=== PATIENT | male | born 2000 | race Caucasian/White ===

== ENCOUNTER → 2022-09-30 16:55 | Outpatient (CLI) | payer OTHER, MEDICAID, SELFPAY ==
[2022-09-30 22:22] LABS: Influenza A - CEPHEID Flu A POSITIVE (NEGATIVE); Influenza B - CEPHEID Flu B NEGATIVE (NEGATIVE); Respiratory Syncytial Virus Negative (Negative)
[2022-09-30 22:23] LABS: COVID-19 CEPHEID 4-PLEX PCR Negative (Negative)
== END ==
PROVIDERS: Visit Provider Physician Assistant Medical
DX: R05.1 Acute cough (principal)
CPT/HCPCS: 0241U

== ENCOUNTER 2022-10-03 09:58 | Emergency (ER) | payer OTHER, MEDICAID, SELFPAY ==
[2022-10-03 10:08] VITALS: BP 113/70; PULSE 79; RESP 15; TEMP 36.6; O2SAT 97; BMI 21.7
--- NOTE | 2022-10-03 10:24 | ED.HA ---
HPI - Headache General Chief Complaint: Headache Stated Complaint: Bronchitis/head[place]/ Time Seen by Provider: 10/03/22 10:04 Source: patient Mode of arrival: Ambulatory Limitations: no limitations History of Present Illness HPI Narrative: 21-year-old male who was seen in the walk-in clinic a couple days ago. Was diagnosed with bronchitis. Was given a prescription for antibiotics and also steroids. Had a respiratory test performed however he does not know the results of a. Is here for evaluation of an episode where he got seasick on the local [place]. He did vomit. He had a headache afterwards. That has improved. He was concerned about mold exposure at his residence. Related Data Home Medications Medication Instructions Recorded Confirmed bupropion HCl 300 mg 24 hr tablet, 300 mg PO QAM 09/30/22 09/30/22 extended release (Wellbutrin XL) carbamazepine 400 mg 400 mg PO BID 09/30/22 09/30/22 tablet,extended release,12 hr (Tegretol XR) estradiol 2 mg tablet 2 mg PO DAILY 09/30/22 09/30/22 Previous Rx's Medication Instructions Recorded azithromycin 250 mg tablet See Rx Instructions PO .COMPLEX #6 09/30/22 tabs methylprednisolone 4 mg tablets in 4 mg PO DAILY #21 ea 09/30/22 a dose pack (Medrol (Freddy)) oseltamivir 75 mg capsule (Tamiflu) 75 mg PO BID 5 days #10 caps 10/01/22 Allergies Allergy/AdvReac Type Severity Reaction Status Date / Time Opioids - Morphine Analogues Allergy Verified 10/03/22 10:11 Review of Systems Constitutional Constitutional: Reports system reviewed and no additional complaints, except as documented ENT Ears, Nose, Mouth, and Throat: Reports system reviewed and no additional complaints, except as documented Respiratory Respiratory: Reports system reviewed and no additional complaints, except as documented Integumentary/Breasts Skin/Breast: Reports system reviewed and no additional complaints, except as documented Hematologic/Lymphatic On Anticoagulants: No Patient History Social History Smoking Status: Current every day smoker Smoking Status: Current every day smoker alcohol intake frequency: holidays/special occasions only Substance Use Type: does not use Exam Initial Vital Signs Initial Vital Signs: Vital Signs Temperature 97.9 F 10/03/22 10:08 Pulse Rate 79 10/03/22 10:08 Respiratory Rate 15 10/03/22 10:08 Blood Pressure 113/70 10/03/22 10:08 Pulse Oximetry 97 10/03/22 10:08 Oxygen Delivery Method 10/03/22 10:08 Const General: cooperative, comfortable and No ill appearing HENMT Head: normal to inspection and normocephalic Resp Effort & Inspection: normal respiratory effort Auscultation: clear to auscultation bilaterally Cardio Rate: regular rate Rhythm: regular rhythm Skin General: no rashes or lesions noted Neuro General: patient alert, patient awake and moves all extremities Extrem General: normal to inspection and capillary refill normal Course Vital Signs Vital signs: Vital Signs - 8 hr 10/03/22 10:08 Temperature 97.9 F Pulse Rate 79 Respiratory Rate 15 Blood Pressure 113/70 Pulse Oximetry 97 Oxygen Delivery Method Room Air MDM - Headache MDM Narrative Medical decision making narrative: Review of the patient's medical record shows that he is influenza A positive. This was news to him. Will have him continue his antibiotics since he is already started them. Will also have him continue the steroids. No indication to change in those today. Lungs are clear. No indication for radiologic studies. All of his symptoms can be explained by his influenza diagnosis. He was given return precautions. He expressed understanding and agreement. Discharge Plan Departure Patient Disposition: Home Clinical Impression: Influenza A Instructions: Influenza Activity Restrictions/Additional Instructions: You can take Tylenol/ibuprofen for any fevers or body aches. Be sure to increase your fluid intake. Continue all medications as directed. Return to the emergency department for any new or worsening symptoms. Prescriptions: No Action bupropion HCl [Wellbutrin XL] 300 mg tablet extended release 24 hr 300 mg PO QAM carbamazepine [Tegretol XR] 400 mg tablet extended release 12 hr 400 mg PO BID estradiol 2 mg tablet 2 mg PO DAILY azithromycin 250 mg tablet See Rx Instructions PO .COMPLEX Qty: 6 0RF Rx Instructions: For 250 mg dose pack: take 500 mg today (day 1), then 250 mg for 4 days (days 2-5) PO methylprednisolone [Medrol (Freddy)] 4 mg tablets,dose pack 4 mg PO DAILY Qty: 21 0RF oseltamivir [Tamiflu] 75 mg capsule 75 mg PO BID 5 Days Qty: 10 0RF Referrals: Miscellaneous,Doctor, MD [Primary Care Provider] -
== END 2022-10-03 10:36 | disposition home or self-care (01) ==
PROVIDERS: Emergency Provider Emergency Medicine
DX: J10.1 Influenza due to other identified influenza virus with other respiratory manifestations (principal)
CPT/HCPCS: 99281

== ENCOUNTER → 2022-10-05 17:11 | Outpatient (CLI) | payer OTHER, MEDICAID, SELFPAY ==
--- NOTE | 2022-10-05 17:13 | DI.RAD.S_ITS ---
PROCEDURE: XR CHEST 2V INDICATIONS: persistent cough 1 month TECHNIQUE: 2 views of the chest were acquired. COMPARISON: None. FINDINGS: Surgical changes and devices: None. Lungs and pleura: Lungs are clear. No pleural effusions or pneumothorax. Mediastinum: Mediastinal contours are normal. Heart size is normal. Bones and chest wall: No suspicious bony abnormalities. Soft tissues appear unremarkable. IMPRESSION: No acute process. Dictated by: Dipika Rivera M.D. on 10/05/2022 at 16:21 Approved by: Dipika Rivera M.D. on 10/05/2022 at 16:21
== END ==
PROVIDERS: Referring Provider Student in an Organized Health Care Education/Training Program; Visit Provider Student in an Organized Health Care Education/Training Program
DX: R05.3 Chronic cough (principal)
CPT/HCPCS: 71046

== ENCOUNTER 2022-12-27 17:39 | Emergency (ER) | payer OTHER, MEDICAID, SELFPAY ==
[2022-12-27 17:54] VITALS: BP 139/83; PULSE 68; RESP 18; O2SAT 98; BMI 21.2
--- NOTE | 2022-12-27 18:06 | ED_ITS ---
HPI - Seizure General Chief Complaint: Seizure Stated Complaint: vomiting/seizure Time Seen by Provider: 12/27/22 18:03 Source: patient Mode of arrival: Ambulatory Limitations: no limitations History of Present Illness HPI Narrative: 22-year-old male smoker, THC user with history anxiety presents feeling very shaky, anxious and nauseated. He states that he was in his relative normal state of health earlier today and then took an energy drink that was a very high concentration formula. He realized after the fact he started feeling poorly and when he looked at the regular dosing he took double what he had intended. He began feeling panicky and shaky and had what he describes as a very brief anxious or panic attack-like seizure that lasted about 5 seconds, he was fully aware of this when it happened. He denies any headache or blurred vision. He has no chest pain or shortness of breath. Related Data Home Medications Medication Instructions Recorded Confirmed bupropion HCl 300 mg 24 hr tablet, 300 mg PO QAM 09/30/22 12/27/22 extended release (Wellbutrin XL) carbamazepine 400 mg 400 mg PO BID 09/30/22 12/27/22 tablet,extended release,12 hr (Tegretol XR) estradiol 2 mg tablet 2 mg PO BID 09/30/22 12/27/22 atomoxetine 40 mg capsule 40 mg PO DAILY 10/05/22 12/27/22 (Strattera) prazosin 2 mg capsule 2 mg PO BEDTIME 10/05/22 12/27/22 hydroxyzine HCl 50 mg tablet 50 mg PO DAILY PRN Anxiety 12/27/22 12/27/22 spironolactone 50 mg tablet 50 mg PO BID 12/27/22 12/27/22 (Aldactone) Previous Rx's Medication Instructions Recorded azithromycin 250 mg tablet See Rx Instructions PO .COMPLEX #6 09/30/22 tabs methylprednisolone 4 mg tablets in 4 mg PO DAILY #21 ea 09/30/22 a dose pack (Medrol (Freddy)) Allergies Allergy/AdvReac Type Severity Reaction Status Date / Time Opioids - Morphine Analogues Allergy Nausea Verified 12/27/22 17:54 Review of Systems Review of Systems Narrative: GENERAL: See HPI HEENT: Denies sinus pain, ear pain, sore throat, difficulty swallowing, dizziness. RESPIRATORY: See HPI CARDIOVASCULAR: See HPI GASTROINTESTINAL: See HPI : Denies dysuria, frequency, incontinence, hematuria, urinary retention. MUSCULOSKELETAL: denies weakness, joint pain, or bony pain SKIN: Denies rash, skin lesions, or other NEUROLOGIC: Denies weakness, headache, numbness, change in speech, confusion, seizures, incoordination. PSYCHIATRIC: No concerning psychosocial issues. 12 point review of systems is negative except for those stated above Patient History Social History Smoking Status: Current every day smoker Smoking Status: Current every day smoker tobacco type: cigarettes and vaping alcohol intake frequency: holidays/special occasions only Substance Use Type: marijuana Exam Narrative Exam Narrative: GENERAL: [22] year old patient appears stated age. Well-developed patient, in mild distress. Slightly anxious, holding an emesis bag HEAD: Atraumatic. Normocephalic. EYES: Pupils equal round and reactive. Extraocular motions intact. No scleral icterus. No injection or drainage. ENT: Moist mucous membranes Nose without bleeding, purulent drainage. Throat w ithout erythema, tonsillar hypertrophy or exudate. Airway patent. NECK: Trachea midline. Non tender CARDIOVASCULAR: Tachycardic but regular rhythm without murmurs, gallops, or rubs. RESPIRATORY: Clear to auscultation. Breath sounds equal bilaterally. No wheezes, rales, or rhonchi. GASTROINTESTINAL: Abdomen soft, non-tender, nondistended. EXTREMITIES: No edema or joint tenderness. BACK: Nontender without deformity or crepitance. No flank tenderness. NEURO: AOx3. SKIN: No rash or erythema of visible areas Initial Vital Signs Initial Vital Signs: Vital Signs Pulse Rate 68 12/27/22 17:54 Respiratory Rate 18 12/27/22 17:54 Blood Pressure 139/83 12/27/22 17:54 Pulse Oximetry 98 12/27/22 17:54 Oxygen Delivery Method Room Air 12/27/22 17:54 Course Orders Ordered: ED Orders 12/27/22 18:15 UA Complete [Urinalysis and Microscopic] Stat Urine Drug Screen, Rapid Stat 12/27/22 19:15 BMP [Basic Metabolic Panel] Stat CBC Auto Diff [Complete Blood Count AUTO DIFF] Stat Discontinued Medications Sodium Chloride (Normal Saline 0.9%) 1,000 mls @ 1,000 mls/hr IV BOLUS ONE Stop: 12/27/22 20:09 Last Infusion: 12/27/22 20:23 Dose: 0 mls/hr Documented By: Admin: 12/27/22 19:17 Dose: 1,000 mls/hr Documented By: JOHNATHON Lorazepam (Lorazepam 2 Mg/Ml Inj) 0.5 mg IV NOW ONE Stop: 12/27/22 19:12 Last Admin: 12/27/22 19:17 Dose: 0.5 mg Documented By: JOHNATHON Ondansetron HCl (Ondansetron 4 Mg Odt) 4 mg SL NOW PRN PRN Reason: Nausea And Vomiting Last Admin: 12/27/22 18:31 Dose: 4 mg Documented By: CLAUDE Ondansetron HCl (Ondansetron 4 Mg Odt Prepack) 1 bottle MISC SEEINSTR ONE Stop: 12/27/22 20:09 Last Admin: 12/27/22 20:23 Dose: 1 bottle Documented By: MAZIN Pantoprazole Sodium (Pantoprazole 40 Mg Vial) 40 mg IV NOW ONE Stop: 12/27/22 19:11 Last Admin: 12/27/22 19:17 Dose: 40 mg Documented By: JOHNATHON Reevaluation(s) Reevaluation #1: Patient is still vomiting 30 minutes after ondansetron ODT Time: 19:13 Reevaluation #2: Significant improvement after IV fluids, patient feeling tremendously better, heart rate improved, no longer nauseous Vital Signs Vital signs: Vital Signs - 8 hr 12/27/22 17:54 12/27/22 18:40 12/27/22 18:41 Temperature Pulse Rate 68 95 H Respiratory Rate 18 Blood Pressure 139/83 122/67 Pulse Oximetry 98 100 Oxygen Delivery Method Room Air 12/27/22 18:41 12/27/22 20:26 Temperature 97.4 F L Pulse Rate 95 H 86 Respiratory Rate 16 Blood Pressure 115/66 Pulse Oximetry 99 100 Oxygen Delivery Method Room Air MDM - Seizure Lab Data 12/27/22 19:15 12/27/22 19:15 Labs: Lab Results 12/27/22 12/27/22 12/27/22 Range/Units 18:15 18:15 19:15 WBC 9.9 (4.5-11.0) X10^3/uL RBC 4.56 (4.5-5.9) X10^6/uL Hgb 13.9 (13.5-17.5) g/dL Hct 40.5 L (41-53) % MCV 88.8 (80-100) fL MCH 30.4 (26-34) PG MCHC 34.2 (30-36) % RDW 12.7 (11.6-14.8) % Plt Count 219 (150-400) X10^3/uL Neut % (Auto) 77.8 H (50-75) % Lymph % (Auto) 14.4 L (25-40) % [place] % (Auto) 6.6 (3-14) % Eos % (Auto) 0.4 L (2-4) % Baso % (Auto) 0.8 (0-2) % Neut # (Auto) 7700 H (3514-6075) /uL Lymph # (Auto) 1400 (8952-3676) /uL [place] # (Auto) 700 (0-900) /uL Eos # (Auto) 0 (0-450) /uL Baso # (Auto) 100 (0-100) /uL Sodium (137-145) mmol/L Potassium (3.4-5.1) mmol/L Chloride (98-107) mmol/L Carbon Dioxide (22-32) mmol/L BUN (9-20) mg/dL Creatinine (0.66-1.25) mg/dL Estimated GFR (>60) mL/min BUN/Creatinine Ratio (6-22) Glucose (70-100) mg/dL Calcium (8.4-10.2) mg/dL Urine Color Yellow Urine Appearance Clear Urine pH 6.5 (4.5-8.0) Ur Specific [place] 1.010 (1.000-1.035) Urine Protein Negative (Negative) Urine Glucose (UA) Negative (Negative) g/dL Urine Ketones Negative (NEGATIVE) Urine Occult Blood Negative (Negative) Urine Nitrate Negative (Negative) Urine Bilirubin Negative (NEGATIVE) Urine Urobilinogen 0.2 (0.2) E.U./dL Ur Leukocyte Esterase Negative (NEGATIVE) Urine RBC 0-1/hpf (0-5/HPF) Urine WBC 0-1/hpf (0-5/HPF) Ur Squamous Epith Cells 0-1 /hpf (0-5/HPF) Urine Bacteria None seen (None) Ur Culture Indicated? Cult not indicated U Opiates 300ng/mL cut Negative (Negative) Ur Oxycodone Screen Negative (Negative) Urine Methadone Screen Negative (Negative) Ur Barbiturates Screen Negative (Negative) U Tricyclic Antidepress Negative (Negative) Ur Phencyclidine Scrn Negative (Negative) Ur Amphetamines Screen Negative (Negative) U Methamphetamines Scrn Negative (Negative) Ur MDMA Scrn (Ecstasy) Negative (Negative) U Benzodiazepines Scrn Negative (Negative) Urine Cocaine Screen Negative (Negative) U Marijuana (THC) Screen Positive H (Negative) 12/27/22 Range/Units 19:15 WBC (4.5-11.0) X10^3/uL RBC (4.5-5.9) X10^6/uL Hgb (13.5-17.5) g/dL Hct (41-53) % MCV (80-100) fL MCH (26-34) PG MCHC (30-36) % RDW (11.6-14.8) % Plt Count (150-400) X10^3/uL Neut % (Auto) (50-75) % Lymph % (Auto) (25-40) % [place] % (Auto) (3-14) % Eos % (Auto) (2-4) % Baso % (Auto) (0-2) % Neut # (Auto) (9648-6229) /uL Lymph # (Auto) (9212-0009) /uL [place] # (Auto) (0-900) /uL Eos # (Auto) (0-450) /uL Baso # (Auto) (0-100) /uL Sodium 138 (137-145) mmol/L Potassium 3.4 (3.4-5.1) mmol/L Chloride 101 (98-107) mmol/L Carbon Dioxide 26 (22-32) mmol/L BUN 7 L (9-20) mg/dL Creatinine 0.68 (0.66-1.25) mg/dL Estimated GFR > 60 (>60) mL/min BUN/Creatinine Ratio 10.3 (6-22) Glucose 106 H (70-100) mg/dL Calcium 9.3 (8.4-10.2) mg/dL Urine Color Urine Appearance Urine pH (4.5-8.0) Ur Specific [place] (1.000-1.035) Urine Protein (Negative) Urine Glucose (UA) (Negative) g/dL Urine Ketones (NEGATIVE) Urine Occult Blood (Negative) Urine Nitrate (Negative) Urine Bilirubin (NEGATIVE) Urine Urobilinogen (0.2) E.U./dL Ur Leukocyte Esterase (NEGATIVE) Urine RBC (0-5/HPF) Urine WBC (0-5/HPF) Ur Squamous Epith Cells (0-5/HPF) Urine Bacteria (None) Ur Culture Indicated? U Opiates 300ng/mL cut (Negative) Ur Oxycodone Screen (Negative) Urine Methadone Screen (Negative) Ur Barbiturates Screen (Negative) U Tricyclic Antidepress (Negative) Ur Phencyclidine Scrn (Negative) Ur Amphetamines Screen (Negative) U Methamphetamines Scrn (Negative) Ur MDMA Scrn (Ecstasy) (Negative) U Benzodiazepines Scrn (Negative) Urine Cocaine Screen (Negative) U Marijuana (THC) Screen (Negative) MDM Narrative Medical decision making narrative: [22] year old patient presents with nausea, vomiting, anxiety and panic Multiple etiologies for patient's symptoms considered including, but not limited to: [Toxic ingestion, anxiety, electrolyte abnormality, versus other] Prior Charts reviewed in our EMR Primary Historian: patient Labs reviewed and interpreted by myself: Urine without signs of infection, dehydration or tox other than THC Patient's symptoms improved over duration of stay with above-stated therapies. It seems likely that patient is perhaps relatively sensitive to caffeine and took a rather large dose which made him feel anxious. He was bit nauseated and felt significant improvement after our therapies. Labs are reassuring as is response to therapies. Patient appropriate for discharge. He is tolerating orals Findings and discharge diagnosis discussed with patient/family followed by verbalization of understanding Return precautions discussed with patient/family whom verbalize understanding of diagnosis and plan Discharge Plan Departure Patient Disposition: Home Clinical Impression: Vomiting, Medication reaction Instructions: DI for Vomiting -- Adult Activity Restrictions/Additional Instructions: *You have been diagnosed with [adverse reaction to huck-hyk-miwuajp substance, vomiting. Thankfully as we discussed your history and physical exam, labs and response to therapies is reassuring and there is no indication for further workup at this time] *What to do: *Please continue to take your regular medications as directed. [ ] New medication prescriptions sent to your pharmacy: [ ] [ ] New medication written as a paper prescription [ ] No new medications given *Please follow up with your primary care provider in 2-3 days, call for an aditi ointment. Let them know you were seen in the Emergency Department and that we ask that you be seen in follow up. We will electronically transmit a record of today's note if your PCP is in our system *If you do not have a primary care provider please contact the [facility] Resource line at [phone]. They will ask some questions about your medical history and help get you set up with a doctor in the community. *Return to Emergency Department if you should have any new, worsening or con cerning symptoms, such as [fever greater than 101 F, shaking chills, worsening pain, persistent vomiting or other bothersome symptoms] Prescriptions: No Action bupropion HCl [Wellbutrin XL] 300 mg tablet extended release 24 hr 300 mg PO QAM carbamazepine [Tegretol XR] 400 mg tablet extended release 12 hr 400 mg PO BID estradiol 2 mg tablet 2 mg PO BID azithromycin 250 mg tablet See Rx Instructions PO .COMPLEX Qty: 6 0RF Rx Instructions: For 250 mg dose pack: take 500 mg today (day 1), then 250 mg for 4 days (days 2-5) PO methylprednisolone [Medrol (Freddy)] 4 mg tablets,dose pack 4 mg PO DAILY Qty: 21 0RF atomoxetine [Strattera] 40 mg capsule 40 mg PO DAILY prazosin 2 mg capsule 2 mg PO BEDTIME hydroxyzine HCl 50 mg Tablet 50 mg PO DAILY PRN (Reason: Anxiety) spironolactone [Aldactone] 50 mg Tablet 50 mg PO BID Referrals: Miscellaneous,Doctor, MD [Primary Care Provider] - Stand Alone Forms: Patient Portal/API
[2022-12-27] MEDS: ONDANSETRON 4 MG ODT SL (18:31)
[2022-12-27 18:38] LABS: Appearance Urine UA CLEAR; Bilirubin Urine UA NEGATIVE (NEGATIVE); Color Urine UA YELLOW; Glucose Urine UA NEGATIVE (Negative); Ketones Urine UA NEGATIVE (NEGATIVE); Leukocyte Esterase Urine UA NEGATIVE (NEGATIVE); Nitrite Urine UA NEGATIVE (Negative); Occult Blood Urine UA NEGATIVE (Negative); Protein Urine UA NEGATIVE (Negative); Urobilinogen Urine UA 0.2 E.U./dL (0.2); pH Urine UA 6.5 (4.5-8.0)
[2022-12-27 18:39] LABS: UR Morphine/Opiate cutoff 300 Negative (Negative); Ur Creatinine Normal (Normal); Ur Specific Gravity Normal (Normal); Urine Amphetamines Negative (Negative); Urine Barbiturates Negative (Negative); Urine Benzodiazepines Negative (Negative); Urine Cocaine Negative (Negative); Urine MDMA Negative (Negative); Urine Methadone Negative (Negative); Urine Methamphetamines Negative (Negative); Urine Oxycodone Negative (Negative); Urine Phencyclidine Negative (Negative); Urine Tetrahydrocannabinol Positive (Negative); Urine Tricyclic Antidepressant Negative (Negative); Urine pH Normal (Normal)
[2022-12-27 18:40] VITALS: PULSE 95; O2SAT 100
[2022-12-27 18:41] VITALS: BP 122/67; PULSE 95; O2SAT 99
[2022-12-27 18:58] LABS: Bacteria Urine None Seen; Culture Indicated Urine Cult Not Indicated; RBC Urine 0-1/HPF (0-5/HPF); Squamous Epithelial Cell Urine 0-1 /HPF (0-5/HPF); WBC Urine 0-1/HPF (0-5/HPF)
[2022-12-27] MEDS: PANTOPRAZOLE 40 MG VIAL IV (19:17)
[2022-12-27] MEDS: SODIUM CHLORIDE 0.9% 1,000 ML 1000 ML IV (19:17)
[2022-12-27] MEDS: LORazepam 2 MG/ML INJ 0.5 MG IV (19:17)
[2022-12-27 19:29] LABS: Add Manual Diff / Slide Review NO; Basophils Absolute Auto 100 /uL (0-100); Basophils Percent Auto 0.8 % (0-2); Eosinophils Absolute Auto 0 /uL (0-450); Eosinophils Percent Auto 0.4 % (2-4); Hematocrit 40.5 % (41-53); Hemoglobin 13.9 g/dL (13.5-17.5); Lymphocytes Absolute Auto 1400 /uL (1100-4500); Lymphocytes Percent Auto 14.4 % (25-40); Mean Corpuscular HGB Conc 34.2 % (30-36); Mean Corpuscular Hemoglobin 30.4 PG (26-34); Mean Corpuscular Volume 88.8 fL (80-100); Monocytes Absolute Auto 700 /uL (0-900); Monocytes Percent Auto 6.6 % (3-14); Neutrophils Absolute Auto 7700 /uL (1500-7000); Neutrophils Percent Auto 77.8 % (50-75); Platelet Count 219 X10^3/uL (150-400); Red Blood Cell Count 4.56 X10^6/uL (4.5-5.9); Red Cell Distribution Width 12.7 % (11.6-14.8); White Blood Cell Count 9.9 X10^3/uL (4.5-11.0)
[2022-12-27 19:43] LABS: BUN Creatinine Ratio 10.3 (6-22); Blood Urea Nitrogen 7 mg/dL (9-20); Calcium 9.3 mg/dL (8.4-10.2); Carbon Dioxide 26 mmol/L (22-32); Chloride 101 mmol/L (98-107); Estimated Glomerular Filt Rate > 60 mL/min (>60); Glucose 106 mg/dL (70-100); HEMOLYSIS < 15 (0-50); Potassium 3.4 mmol/L (3.4-5.1); Sodium 138 mmol/L (137-145)
[2022-12-27] MEDS: ONDANSETRON 4 MG ODT PREPACK 1 BOTTLE MISC (20:23)
[2022-12-27 20:26] VITALS: BP 115/66; PULSE 86; RESP 16; TEMP 36.3; O2SAT 100
== END 2022-12-27 20:25 | disposition home or self-care (01) ==
PROVIDERS: Emergency Provider Emergency Medicine
DX: R11.10 Vomiting, unspecified (principal); T50.905A Adverse effect of unspecified drugs, medicaments and biological substances, initial encounter
CPT/HCPCS: 80048; 80305; 81001; 85025; 96361; 96374; 96375; 99284; C9113; J2060

== ENCOUNTER 2023-03-04 08:01 | Emergency (ER) | payer OTHER, MEDICAID, SELFPAY ==
[2023-03-04 08:08] VITALS: BP 141/61; PULSE 92; RESP 18; TEMP 36.8; O2SAT 97; BMI 21.2
--- NOTE | 2023-03-04 08:28 | DI.RAD.S_ITS ---
PROCEDURE: XR CHEST 1V INDICATIONS: cough TECHNIQUE: One view of the chest was acquired. COMPARISON: [facility], CR, XR CHEST 2V, 10/05/2022, 17:12. FINDINGS: Surgical changes and devices: None. Lungs and pleura: Hazy left mid lung zone airspace opacity. Mediastinum: Mediastinal contours appear normal. Heart size is normal. Bones and chest wall: No suspicious bony lesions. Overlying soft tissues appear unremarkable. IMPRESSION: Hazy left mid lung zone airspace opacity, either atelectasis or developing pneumonia. Dictated by: Guillermo Juarez M.D. on 03/04/2023 at 9:13 Approved by: Guillermo Juarez M.D. on 03/04/2023 at 9:14
--- NOTE | 2023-03-04 08:29 | ED_ITS ---
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 Complains 1 week postnasal drip congestion productive cough. Had some blood-tinged sputum this morning. Awake each morning with coughing that clears however this morning had more productive cough. No dyspnea. No chest pain. Patient states sick contacts include roommates as well as patient went to a libertarian and was informed was exposed to influenza. Patient has inhaler home with past use for possible asthma. Patient in no distress. Related Data Home Medications Medication Instructions Recorded Confirmed bupropion HCl 300 mg 24 hr tablet, 300 mg PO QAM 09/30/22 12/27/22 extended release (Wellbutrin XL) carbamazepine 400 mg 400 mg PO BID 09/30/22 12/27/22 tablet,extended release,12 hr (Tegretol XR) estradiol 2 mg tablet 2 mg PO BID 09/30/22 12/27/22 atomoxetine 40 mg capsule 40 mg PO DAILY 10/05/22 12/27/22 (Strattera) prazosin 2 mg capsule 2 mg PO BEDTIME 10/05/22 12/27/22 hydroxyzine HCl 50 mg tablet 50 mg PO DAILY PRN Anxiety 12/27/22 12/27/22 spironolactone 50 mg tablet 50 mg PO BID 12/27/22 12/27/22 (Aldactone) Previous Rx's Medication Instructions Recorded azithromycin 250 mg tablet See Rx Instructions PO .COMPLEX #6 09/30/22 tabs methylprednisolone 4 mg tablets in 4 mg PO DAILY #21 ea 09/30/22 a dose pack (Medrol (Freddy)) Allergies Allergy/AdvReac Type Severity Reaction Status Date / Time Opioids - Morphine Analogues Allergy Nausea Verified 12/27/22 17:54 Review of Systems Review of Systems Narrative: GENERAL: negative chills, fatigue, malaise, fever, sweats. HEENT: negative sinus pain, ear pain, sore throat, positive postnasal drip RESPIRATORY: negative dyspnea, positive cough CARDIOVASCULAR: negative chest pain, palpitations GASTROINTESTINAL: negative nausea, vomiting, abdominal pain : negative dysuria, frequency, hematuria MUSCULOSKELETAL: negative muscle or bony pain SKIN: negative rash, skin lesions NEUROLOGIC: negative weakness, numbness ROS Unobtainable: All systems reviewed & are unremarkable except as noted in HPI and below Patient History Social History Smoking Status: Current every day smoker Smoking Status: Current every day smoker tobacco type: cigarettes and vaping alcohol intake frequency: holidays/special occasions only Substance Use Type: marijuana Exam Narrative Exam Narrative: GENERAL: in no distress, not toxic not dyspneic HEAD: Normocephalic. EYES: Pupils equal round ENT: Mucous membranes moist. No pharyngeal erythema edema exudates. No tongue elevation. No uvular shift. NECK: Trachea midline. CARDIOVASCULAR: Regular rate and rhythm without murmurs RESPIRATORY: Clear to auscultation. Breath sounds equal bilaterally. No wheezes, rales, or rhonchi. Speaking full sentences. No respiratory distress. BACK: No flank tenderness. NEURO: AOx4. SKIN: Warm and dry PSYCH: Not anxious, is cooperative Initial Vital Signs Initial Vital Signs: Vital Signs Temperature 98.2 F 03/04/23 08:08 Pulse Rate 92 H 03/04/23 08:08 Respiratory Rate 18 03/04/23 08:08 Blood Pressure 141/61 H 03/04/23 08:08 Pulse Oximetry 97 03/04/23 08:08 Oxygen Delivery Method Room Air 03/04/23 08:08 Course Orders Ordered: ED Orders 03/04/23 08:28 XR chest 1V Stat 03/04/23 08:35 Respiratory Panel (Film Array) Stat Vital Signs Vital signs: Vital Signs - 8 hr 03/04/23 08:08 Temperature 98.2 F Pulse Rate 92 H Respiratory Rate 18 Blood Pressure 141/61 H Pulse Oximetry 97 Oxygen Delivery Method Room Air MDM - URI/Sore Throat Lab Data Labs: Lab Results 03/04/23 Range/Units 08:35 Chlamy pneumoniae PCR Not detected (Not Detect) Adenovirus (PCR) Not detected (Not Detect) B. pertussis DNA (PCR) Not detected (Not Detecte) B.parapertussis DNA PCR Not detected (Not Detecte) Coronavirus OC43 (PCR) Not detected (Not Detect) Coronavirus HKU1 (PCR) Not detected (Not Detect) Coronavirus 229E (PCR) Not detected (Not Detect) SARS-CoV-2 (PCR) Not detected (Not Detecte) Coronavirus NL63 (PCR) Not detected (Not Detect) Human Metapneumovir PCR Detected H (Not Detect) Influenza Type A (PCR) Not detected (Not Detect) Influenza Type B (PCR) Not detected (Not Detect) M. pneumoniae (PCR) Not detected (Not Detect) Parainfluenza 1 (PCR) Not detected (Not Detect) Parainfluenza 2 (PCR) Not detected (Not Detect) Parainfluenza 3 (PCR) Not detected (Not Detect) Parainfluenza 4 (PCR) Not detected (Not Detect) RSV (PCR) Not detected (Not Detect) Entero/Rhino (PCR) Not detected (Not Detect) Imaging Data Chest x-ray: Radiologist's Impression: IMPRESSION:? Hazy left mid lung zone airspace opacity, either atelectasis or developing pneumonia. 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 Complains 1 week postnasal drip congestion productive cough. Had some blood-tinged sputum this morning. Awake each morning with coughing that clears however this morning had more productive cough. No dyspnea. No chest pain. Patient states sick contacts include roommates as well as patient went to a libertarian and was informed was exposed to influenza. Patient has inhaler home with past use for possible asthma. Patient in no distress. 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 Pertinent findings: Viral swab positive human metapneumovirus Imaging studies independently reviewed: Chest x-ray left lower lobe atelectasis versus pneumonia Treatments: None required Re-evaluations: Reviewed results with patient and partner. At this time no antibiotics indicated for viral infection. Patient does understand. Patient does see primary care at [facility]. Patient does have inhaler at home to use as needed for cough or shortness of breath. Return precautions reviewed with patient and partner. They desire discharge home. Discussion: Appropriate for discharge home. No antibiotics indicated. No hypoxia no tachypnea no tachycardia. No breathing treatments indicated. No prescriptions indicated. Patient does have primary care to follow up with. Not toxic at discharge. Patient desires discharge home. Diagnosis: Viral bronchitis Discharge Plan Departure Patient Disposition: Home Clinical Impression: Infection due to human metapneumovirus (hMPV) Instructions: DI for Acute Bronchitis, DI for Viral Upper Respiratory Infection -- Adult Activity Restrictions/Additional Instructions: Please see your family doctor in a week for re-evaluation. The viral swab shows you have tested positive for the human metapneumovirus, no antibiotics indicated at this time. Antibiotics do not work on viruses. Please do use your inhaler at home 2 puffs every 4 hours as needed for cough or short of breath. Return immediately if worse if any questions or concerns. Work note has been provided for you. Return if worse if any questions or concerns Prescriptions: No Action bupropion HCl [Wellbutrin XL] 300 mg tablet extended release 24 hr 300 mg PO QAM carbamazepine [Tegretol XR] 400 mg tablet extended release 12 hr 400 mg PO BID estradiol 2 mg tablet 2 mg PO BID azithromycin 250 mg tablet See Rx Instructions PO .COMPLEX Qty: 6 0RF Rx Instructions: For 250 mg dose pack: take 500 mg today (day 1), then 250 mg for 4 days (days 2-5) PO methylprednisolone [Medrol (Freddy)] 4 mg tablets,dose pack 4 mg PO DAILY Qty: 21 0RF atomoxetine [Strattera] 40 mg capsule 40 mg PO DAILY prazosin 2 mg capsule 2 mg PO BEDTIME hydroxyzine HCl 50 mg Tablet 50 mg PO DAILY PRN (Reason: Anxiety) spironolactone [Aldactone] 50 mg Tablet 50 mg PO BID Referrals: Miscellaneous,Doctor, [Non-Staff] - Stand Alone Forms: Patient Portal/API, Work Release Note
[2023-03-04 09:39] LABS: Adenovirus Not Detected (Not Detect); B. parapertussis Not Detected (Not Detecte); Bordetella pertussis Not Detected (Not Detecte); Chlamydophila pneumoniae Not Detected (Not Detect); Coronavirus 229E Not Detected (Not Detect); Coronavirus HKU1 Not Detected (Not Detect); Coronavirus NL 63 Not Detected (Not Detect); Coronavirus OC43 Not Detected (Not Detect); Human Metapneumovirus Detected (Not Detect); Human Rhinovirus/Enterovirus Not Detected (Not Detect); Influenza A Not Detected (Not Detect); Influenza B Not Detected (Not Detect); Mycoplasma pneumoniae Not Detected (Not Detect); Parainfluenza Virus 1 Not Detected (Not Detect); Parainfluenza Virus 2 Not Detected (Not Detect); Parainfluenza Virus 3 Not Detected (Not Detect); Parainfluenza Virus 4 Not Detected (Not Detect); Respiratory Syncytial Virus Not Detected (Not Detect); SARS- CoV-2 Not Detected (Not Detecte)
[2023-03-04 10:11] VITALS: BP 123/62; PULSE 82; RESP 18; O2SAT 97
== END 2023-03-04 10:11 | disposition home or self-care (01) ==
PROVIDERS: Emergency Provider Emergency Medicine
DX: J06.9 Acute upper respiratory infection, unspecified (principal); B97.81 Human metapneumovirus as the cause of diseases classified elsewhere; F17.200 Nicotine dependence, unspecified, uncomplicated
CPT/HCPCS: 71045; 87633; 99283

== ENCOUNTER → 2023-08-17 14:27 | Outpatient (CLI) | payer OTHER, SELFPAY ==
[2023-08-17 15:22] LABS: Influenza A - CEPHEID Flu A NEGATIVE (NEGATIVE); Influenza B - CEPHEID Flu B NEGATIVE (NEGATIVE); Respiratory Syncytial Virus Negative (Negative)
[2023-08-17 15:23] LABS: COVID-19 CEPHEID 4-PLEX PCR Negative (Negative)
== END ==
PROVIDERS: Visit Provider Physician Assistant
DX: R11.0 Nausea (principal)
CPT/HCPCS: 0241U

== ENCOUNTER 2023-08-30 03:05 | Emergency (ER) | payer SELFPAY ==
[2023-08-30 03:10] VITALS: BP 113/62; PULSE 81; RESP 20; TEMP 36.7; O2SAT 96; BMI 21.2
--- NOTE | 2023-08-30 03:11 | ED_ITS ---
HPI - General Adult General Chief complaint: Head Injury Stated complaint: gashed head on cabinet Time Seen by Provider: 08/30/23 03:08 Source: patient Mode of arrival: Ambulatory Limitations: no limitations History of Present Illness HPI narrative: Patient is here for evaluation of a head injury. Patient states that she hit her head on the corner of a cabinet. There was no loss of consciousness but did have a headache afterwards. This has improved somewhat. Has had some nausea as well but this has improved. Did have some bleeding from her head. Not on blood thinners. No other injuries from the event. Related Data Home Medications Medication Instructions Recorded Confirmed bupropion HCl 300 mg 24 hr tablet, 300 mg PO QAM 09/30/22 08/17/23 extended release (Wellbutrin XL) carbamazepine 400 mg 400 mg PO BID 09/30/22 08/17/23 tablet,extended release,12 hr (Tegretol XR) estradiol 2 mg tablet 2 mg PO BID 09/30/22 08/17/23 prazosin 2 mg capsule 2 mg PO BEDTIME 10/05/22 08/17/23 hydroxyzine HCl 50 mg tablet 50 mg PO DAILY PRN Anxiety 12/27/22 08/17/23 spironolactone 50 mg tablet 50 mg PO BID 12/27/22 08/17/23 (Aldactone) Allergies Allergy/AdvReac Type Severity Reaction Status Date / Time Opioids - Morphine Analogues Allergy Nausea Verified 08/17/23 13:53 Review of Systems Constitutional Constitutional: Reports system reviewed and no additional complaints, except as documented ENT Ears, Nose, Mouth, and Throat: Reports system reviewed and no additional complaints, except as documented Respiratory Respiratory: Reports system reviewed and no additional complaints, except as documented Integumentary/Breasts Skin/Breast: Reports system reviewed and no additional complaints, except as documented Neurologic Neurologic: Reports system reviewed and no additional complaints, except as doc umented Hematologic/Lymphatic On Anticoagulants: No Patient History Social History Smoking Status: Current every day smoker Smoking Status: Current every day smoker tobacco type: cigarettes and vaping alcohol intake frequency: holidays/special occasions only Substance Use Type: marijuana Exam Initial Vital Signs Initial Vital Signs: Vital Signs Temperature 98.1 F 08/30/23 03:10 Pulse Rate 81 08/30/23 03:10 Respiratory Rate 20 08/30/23 03:10 Blood Pressure 113/62 08/30/23 03:10 Pulse Oximetry 96 08/30/23 03:10 Oxygen Delivery Method Room Air 08/30/23 03:10 HENMT Head: No hematoma, laceration (3 cm superficial) and No palpable skull fracture Resp Effort & Inspection: normal respiratory effort Cardio Rate: regular rate Skin Other: 3 cm superficial laceration to scalp. Neuro General: patient alert, patient awake and moves all extremities Course Vital Signs Vital signs: Vital Signs - 8 hr 08/30/23 03:10 Temperature 98.1 F Pulse Rate 81 Respiratory Rate 20 Blood Pressure 113/62 Pulse Oximetry 96 Oxygen Delivery Method Room Air Medical Decision Making MDM Narrative Medical decision making narrative: Superficial laceration to scalp. No active bleeding. No need for fixation here in the ER. We did discuss concussions. No indication for head CT. Low suspicion for skull fracture or intracranial hemorrhage. We discussed activities to avoid. Discussed return precautions. Patient expressed understanding and agreement plan. Discharge Plan Departure Patient Disposition: Home Clinical Impression: Concussion, Abrasion of scalp Instructions: Concussion Activity Restrictions/Additional Instructions: Continue to take all of your medications as directed. You can take Tylenol as needed for headaches. You do need to avoid activities where you can hit your head again. Contact your primary doctor for follow-up. Prescriptions: No Action bupropion HCl [Wellbutrin XL] 300 mg tablet extended release 24 hr 300 mg PO QAM carbamazepine [Tegretol XR] 400 mg tablet extended release 12 hr 400 mg PO BID estradiol 2 mg tablet 2 mg PO BID prazosin 2 mg capsule 2 mg PO BEDTIME hydroxyzine HCl 50 mg Tablet 50 mg PO DAILY PRN (Reason: Anxiety) spironolactone [Aldactone] 50 mg Tablet 50 mg PO BID Referrals: Miscellaneous,Doctor, MD [Primary Care Provider] - Stand Alone Forms: Patient Portal/API
== END 2023-08-30 03:48 | disposition home or self-care (01) ==
PROVIDERS: Emergency Provider Emergency Medicine
DX: S06.0X0A Concussion without loss of consciousness, initial encounter (principal); S00.01XA Abrasion of scalp, initial encounter; W22.8XXA Striking against or struck by other objects, initial encounter
CPT/HCPCS: 99281

== ENCOUNTER 2023-12-19 16:24 | Emergency (ER) | payer OTHER, SELFPAY ==
[2023-12-19 16:27] VITALS: BP 152/73; PULSE 95; RESP 20; TEMP 36.3; O2SAT 97; BMI 24.7
--- NOTE | 2023-12-19 18:27 | ED_ITS ---
HPI - Head Injury <Madelyn Mireles PA-C - Last Filed: 12/19/23 19:59> General Chief complaint: Head Injury Stated complaint: head injury, feels like a conscussion Time Seen by Provider: 12/19/23 17:10 Source: patient Mode of arrival: Ambulatory History of Present Illness HPI Narrative: Patient is a 23-year-old male who is transitioning to female presenting for evaluation after hitting the back of her head near the nape of her neck while at work. She states that she was lifting something off of a shelf in front of her, balanced and knocked the back of her head into a metal rack. She denies any loss of consciousness nor any change in vision after the event. She denies any change in balance at that time. She does report little bit of head pain at that time but it did not seem significant to her at that time. As the day continued, she noticed an increasing sense of balance disturbance. sHe describes it almost as vertigo. She states that he noticed a light stain across his vision. She reports that this is quite similar to when she used to have migraines when she was younger. She reports feeling unbalanced as well as light sensitivity. She denies any change to his baseline hearing. She reports feeling sluggish. She denies any nausea or vomiting but reports feeling sensation of hot flashes and the pain in her head has settled into her right anterior forehead. She reports medical condition of bipolar in his treated with carbamazepine and bupropion. For the gender transition, she is taking spironolactone and estradiol. Related Data Home Medications Medication Instructions Recorded Confirmed bupropion HCl 300 mg 24 hr tablet, 300 mg PO QAM 09/30/22 08/17/23 extended release (Wellbutrin XL) carbamazepine 400 mg 400 mg PO BID 09/30/22 08/17/23 tablet,extended release,12 hr (Tegretol XR) estradiol 2 mg tablet 2 mg PO BID 09/30/22 08/17/23 prazosin 2 mg capsule 2 mg PO BEDTIME 10/05/22 08/17/23 hydroxyzine HCl 50 mg tablet 50 mg PO DAILY PRN Anxiety 12/27/22 08/17/23 spironolactone 50 mg tablet 50 mg PO BID 12/27/22 08/17/23 (Aldactone) Allergies Allergy/AdvReac Type Severity Reaction Status Date / Time Opioids - Morphine Analogues Allergy Nausea Verified 08/17/23 13:53 Review of Systems <Madelyn Mireles PA-C - Last Filed: 12/19/23 19:59> Review of Systems Narrative: see HPI Patient History <Madelyn Mireles PA-C - Last Filed: 12/19/23 19:59> Social History Smoking Status: Current every day smoker Smoking Status: Current every day smoker tobacco type: cigarettes and vaping alcohol intake frequency: holidays/special occasions only Substance Use Type: marijuana Exam <Madelyn Mireles PA-C - Last Filed: 12/19/23 19:59> Initial Vital Signs Initial Vital Signs: Vital Signs Temperature 97.3 F L 12/19/23 16:27 Pulse Rate 95 H 12/19/23 16:27 Respiratory Rate 20 12/19/23 16:27 Blood Pressure 152/73 H 12/19/23 16:27 Pulse Oximetry 97 12/19/23 16:27 Oxygen Delivery Method Room Air 12/19/23 16:27 GENERAL: 23 year old patient appears stated age. Well-developed patient, in no acute distress. HEAD: Atraumatic. Normocephalic. No tenderness to palpation of posterior head, no evidence laceration scabbing or trauma or bruising. No hematoma present. EYES: Pupils equal round and reactive. Extraocular motions intact. No scleral icterus. No injection or drainage. No deficits noted in peripheral vision bilaterally. ENT: Nose without bleeding, purulent drainage. NECK: Trachea midline. Non tender. CARDIOVASCULAR: Regular rate and rhythm without murmurs, gallops, or rubs. RESPIRATORY: Clear to auscultation. Breath sounds equal bilaterally. No wheezes, rales, or rhonchi. GASTROINTESTINAL: Abdomen soft, non-tender, nondistended. EXTREMITIES: No edema or joint tenderness. 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 No flank tenderness. NEURO: AOx3. CN 3-12 intact bilaterally, DTR patellar brisk 2+ bilaterally SKIN: No rash or erythema of visible areas <Marcie Quintanilla DO - Last Filed: 12/20/23 03:35> Initial Vital Signs Initial Vital Signs: Vital Signs Temperature 97.3 F L 12/19/23 16:27 Pulse Rate 95 H 12/19/23 16:27 Respiratory Rate 20 12/19/23 16:27 Blood Pressure 152/73 H 12/19/23 16:27 Pulse Oximetry 97 12/19/23 16:27 Oxygen Delivery Method Room Air 12/19/23 16:27 Course <Madelyn Mireles PA-C - Last Filed: 12/19/23 19:59> Orders Ordered: Discontinued Medications Ibuprofen (Ibuprofen 400 Mg Tablet) 400 mg PO NOW ONE Stop: 12/19/23 18:58 Last Admin: 12/19/23 19:09 Dose: 400 mg Documented By: KRISHNA Vital Signs Vital signs: Vital Signs - 8 hr 12/19/23 20:00 Pulse Rate 74 Respiratory Rate 16 Blood Pressure 126/71 Pulse Oximetry 100 Oxygen Delivery Method Room Air <Marcie Quintanilla DO - Last Filed: 12/20/23 03:35> Orders Ordered: Discontinued Medications Ibuprofen (Ibuprofen 400 Mg Tablet) 400 mg PO NOW ONE Stop: 12/19/23 18:58 Last Admin: 12/19/23 19:09 Dose: 400 mg Documented By: KRISHNA Vital Signs Vital signs: Vital Signs - 8 hr 12/19/23 20:00 Pulse Rate 74 Respiratory Rate 16 Blood Pressure 126/71 Pulse Oximetry 100 Oxygen Delivery Method Room Air MDM - Head Injury <Madelyn Mireles PA-C - Last Filed: 12/19/23 19:59> MDM Narrative Medical decision making narrative: Patient is a 23-year-old male transitioning to female who is reporting for evaluation after hitting the back of her head on a metal rack while standing. She is concerned because she has had growing symptoms of balance disturbance, light spot across her vision and pain present in the anterior right side of her forehead. No abnormalities noted during neurological examination today. Patient's symptoms are consistent with a concussion. I recommend light duties at work for the next several days until follow up with L&I provider. I recommend reduced pushing and lifting and frequent rests if activities provoke return if symptoms. Discussed that patient should follow up in the ER if she should develop severe nausea vomiting, worsening balance, worsening headache or other concerning symptoms. No indication for CT imaging as patient's condition was stable with normal vital signs and no abnormalities noted on exam. Multiple etiologies for patient's symptoms considered including, but not limited to: Concussion, migraine Patient's symptoms improved over duration of stay with above-stated therapies. Findings and discharge diagnosis discussed with patient/family followed by verbalization of understanding Return precautions discussed with patient/family whom verbalize understanding of diagnosis and plan Discharge Plan Departure Patient Disposition: Home Clinical Impression: Concussion Qualifiers: Encounter type: initial encounter Loss of consciousness presence/duration: without LOC Qualified Code(s): S06.0X0A - Concussion without loss of consciousness, initial encounter Instructions: Concussion Activity Restrictions/Additional Instructions: Thank you for coming in today for your care. You were diagnosed today with a concussion. I recommend slow return to activity over the next several days. Although you may return to work, I recommend light duty with no heavy lifting or pushing over the next several days until follow up with L&I provider. I also recommend that if you should experience return of your symptoms to include balance disturbance or fatigue that you take frequent breaks and time to rest until symptoms subside. I recommend you contact [facility] at [phone] for follow up with L&I provider prior to full return to activity. Please follow up in the emergency department if you should experience any severe pain, abrupt visual change, weakness in your extremities or any other concerning signs or symptoms. Prescriptions: No Action bupropion HCl [Wellbutrin XL] 300 mg tablet extended release 24 hr 300 mg PO QAM carbamazepine [Tegretol XR] 400 mg tablet extended release 12 hr 400 mg PO BID estradiol 2 mg tablet 2 mg PO BID prazosin 2 mg capsule 2 mg PO BEDTIME hydroxyzine HCl 50 mg Tablet 50 mg PO DAILY PRN (Reason: Anxiety) spironolactone [Aldactone] 50 mg Tablet 50 mg PO BID Referrals: Miscellaneous,Doctor, MD [Primary Care Provider] - Stand Alone Forms: Patient Portal/API ED Sign-out <Marcie Quintanilla DO - Last Filed: 12/20/23 03:35> Cosign ED Attending John Attestation: I was immediately available in the department for consultation.
[2023-12-19] MEDS: IBUPROFEN 400 MG TABLET PO (19:09)
[2023-12-19 20:00] VITALS: BP 126/71; PULSE 74; RESP 16; O2SAT 100
== END 2023-12-19 20:00 | disposition home or self-care (01) ==
PROVIDERS: Emergency Provider Physician Assistant
DX: S06.0X0A Concussion without loss of consciousness, initial encounter (principal); M54.2 Cervicalgia; W22.8XXA Striking against or struck by other objects, initial encounter
CPT/HCPCS: 99283

== ENCOUNTER 2023-12-22 19:35 | Emergency (ER) | payer OTHER, SELFPAY ==
[2023-12-22 19:39] VITALS: BP 143/82; PULSE 117; RESP 18; TEMP 36.9; O2SAT 100; BMI 21.2
--- NOTE | 2023-12-22 20:30 | PC.NURSE ---
Support person asked this RN to see patient after c/o leg spasms. Patient c/o difficulty doing muscle memory actions and continues to feel unwell. Educated patient that we will get them back as soon as possible. Patient is maintaining posture in chair, breathing without difficulty, and able to make needs known.
--- NOTE | 2023-12-22 21:21 | ED.RECABL ---
HPI - Recheck/Abnormal Lab/Rx General Chief Complaint: Recheck/Abnormal Lab/Rx Stated Complaint: hit head a few a days ago, extemities feeling numb Time Seen by Provider: 12/22/23 21:03 Source: patient Mode of arrival: Ambulatory History of Present Illness HPI narrative: Patient is a 23-year-old who is here for evaluation of being lightheaded and feeling numb in the extremities after taking a hit of THC. Patient states that a few days ago the patient did hit their head. No loss of consciousness. Not on anticoagulation. Has had a concussion in the past. Things seem to be improving until today when the patient took a hit of THC and afterwards became somewhat anxious numbness in the extremities. Currently patient has no symptoms. Related Data Home Medications Medication Instructions Recorded Confirmed bupropion HCl 300 mg 24 hr tablet, 300 mg PO QAM 09/30/22 08/17/23 extended release (Wellbutrin XL) carbamazepine 400 mg 400 mg PO BID 09/30/22 08/17/23 tablet,extended release,12 hr (Tegretol XR) estradiol 2 mg tablet 2 mg PO BID 09/30/22 08/17/23 prazosin 2 mg capsule 2 mg PO BEDTIME 10/05/22 08/17/23 hydroxyzine HCl 50 mg tablet 50 mg PO DAILY PRN Anxiety 12/27/22 08/17/23 spironolactone 50 mg tablet 50 mg PO BID 12/27/22 08/17/23 (Aldactone) Allergies Allergy/AdvReac Type Severity Reaction Status Date / Time Opioids - Morphine Analogues AdvReac Nausea Verified 12/22/23 19:39 Review of Systems Constitutional Constitutional: Reports system reviewed and no additional complaints, except as documented Musculoskeletal Musculoskeletal: Reports system reviewed and no additional complaints, except as documented Integumentary/Breasts Skin/Breast: Reports system reviewed and no additional complaints, except as documented Neurologic Neurologic: Reports system reviewed and no additional complaints, except as documented Patient History Social History Smoking Status: Current every day smoker Smoking Status: Current every day smoker tobacco type: cigarettes and vaping alcohol intake frequency: holidays/special occasions only Substance Use Type: marijuana Exam Initial Vital Signs Initial Vital Signs: Vital Signs Temperature 98.4 F 12/22/23 19:39 Pulse Rate 117 H 12/22/23 19:39 Respiratory Rate 18 12/22/23 19:39 Blood Pressure 143/82 H 12/22/23 19:39 Pulse Oximetry 100 12/22/23 19:39 Oxygen Delivery Method Room Air 12/22/23 19:39 Resp Effort & Inspection: normal respiratory effort Cardio Rate: regular rate Neuro General: patient alert, patient awake, patient oriented x3 and moves all extremities Extrem General: normal to inspection and capillary refill normal Course Vital Signs Vital signs: Vital Signs - 8 hr 12/22/23 19:39 12/22/23 21:38 Temperature 98.4 F 97.4 F L Pulse Rate 117 H 80 Respiratory Rate 18 16 Blood Pressure 143/82 H 132/78 Pulse Oximetry 100 99 Oxygen Delivery Method Room Air Room Air MDM - Recheck/Abnormal Lab/Rx MDM Narrative Medical decision making narrative: Patient is currently feeling much better in his relatively asymptomatic. I suspect that the symptoms are related to the THC and not necessarily from the concussion. No indication for radiologic studies. Provided reassurance to the patient. Patient expressed understanding and agreement with plan. Discharge Plan Departure Patient Disposition: Home Clinical Impression: Concussion Instructions: Concussion Activity Restrictions/Additional Instructions: It is important that you avoid activities that make your symptoms worse. Your symptoms should improve over the next couple days/week or so. Return to the emergency department for new symptoms. Prescriptions: No Action bupropion HCl [Wellbutrin XL] 300 mg tablet extended release 24 hr 300 mg PO QAM carbamazepine [Tegretol XR] 400 mg tablet extended release 12 hr 400 mg PO BID estradiol 2 mg tablet 2 mg PO BID prazosin 2 mg capsule 2 mg PO BEDTIME hydroxyzine HCl 50 mg Tablet 50 mg PO DAILY PRN (Reason: Anxiety) spironolactone [Aldactone] 50 mg Tablet 50 mg PO BID Referrals: Miscellaneous,Doctor, MD [Primary Care Provider] - Stand Alone Forms: Patient Portal/API
[2023-12-22 21:38] VITALS: BP 132/78; PULSE 80; RESP 16; TEMP 36.3; O2SAT 99
== END 2023-12-22 21:38 | disposition home or self-care (01) ==
PROVIDERS: Emergency Provider Emergency Medicine
DX: S06.0X0A Concussion without loss of consciousness, initial encounter (principal); X58.XXXA Exposure to other specified factors, initial encounter
CPT/HCPCS: 99281

== ENCOUNTER 2024-04-23 20:42 | Emergency (ER) | payer OTHER, MEDICAID, SELFPAY ==
[2024-04-23 21:00] VITALS: BP 118/57; PULSE 75; RESP 16; TEMP 36.9; O2SAT 100; BMI 22.0
--- NOTE | 2024-04-23 22:30 | ED.WOUNDLAC ---
HPI - Wound/Laceration General Chief Complaint: Wound/Laceration Stated Complaint: Pinky laceration Time Seen by Provider: 04/23/24 22:25 Source: patient Mode of arrival: Ambulatory History of Present Illness HPI narrative: 23-year-old male works at [email or web address] [place] area, 8:00 p.m. eusebio, had broken glass injury, sustaining laceration to his right volar 5th finger. Minor abrasion to 4th finger. Last tetanus shot less than 5 years ago. No other injuries recalled. No falls or direct blows. Denies pain to head, neck, chest, back, abdomen, paths, left upper extremity, both lower extremities. Last tetanus shot was less than 5 years ago Related Data Home Medications Medication Instructions Recorded Confirmed bupropion HCl 300 mg 24 hr tablet, 300 mg PO QAM 09/30/22 03/03/24 extended release (Wellbutrin XL) carbamazepine 400 mg 400 mg PO BID 09/30/22 03/03/24 tablet,extended release,12 hr (Tegretol XR) estradiol 2 mg tablet 2 mg PO BID 09/30/22 03/03/24 prazosin 2 mg capsule 2 mg PO BEDTIME 10/05/22 03/03/24 hydroxyzine HCl 50 mg tablet 50 mg PO DAILY PRN Anxiety 12/27/22 03/03/24 spironolactone 50 mg tablet 50 mg PO BID 12/27/22 03/03/24 (Aldactone) atomoxetine 25 mg capsule 25 mg PO ONCE 03/03/24 03/03/24 (Strattera) Previous Rx's Medication Instructions Recorded mupirocin 2 % topical ointment 1 applic topical TID #22 grams 03/03/24 cephalexin 500 mg capsule 500 mg PO QID 7 days #28 caps 04/24/24 Allergies Allergy/AdvReac Type Severity Reaction Status Date / Time Opioids - Morphine Analogues AdvReac Nausea Verified 04/23/24 21:00 Review of Systems Review of Systems Narrative: as per HPI Patient History Social History Smoking Status: Current every day smoker Smoking Status: Current every day smoker tobacco type: cigarettes and vaping alcohol intake frequency: holidays/special occasions only Substance Use Type: marijuana Exam Narrative Exam Narrative: GENERAL: Well-developed patient, in mild distress. HEAD: Atraumatic. Normocephalic. EYES: Pupils equal round and reactive. Extraocular motions intact. No scleral icterus. No injection or drainage. ENT: Nose without bleeding, purulent drainage. Throat without erythema, tonsillar hypertrophy or exudate. Airway patent. NECK: Trachea midline. Non tender CARDIOVASCULAR: Regular rate and rhythm without murmurs, gallops, or rubs. RESPIRATORY: Clear to auscultation. Breath sounds equal bilaterally. No wheezes, rales, or rhonchi. GASTROINTESTINAL: Abdomen soft, non-tender, nondistended. EXTREMITIES: Right 5th finger with volar 1 cm angulated laceration, wound explored, can see flexor tendon, difficult to see movement or separation, patient seems to be able to flex pinky finger at the level of the MCP but not at PIP or DIP, possible partial flexor tendon injury BACK: Nontender without deformity or crepitance. No flank tenderness. NEURO: AOx3. SKIN: No rash or erythema of visible areas Initial Vital Signs Initial Vital Signs: Vital Signs Temperature 98.5 F 04/23/24 21:00 Pulse Rate 75 04/23/24 21:00 Respiratory Rate 16 04/23/24 21:00 Blood Pressure 118/57 L 04/23/24 21:00 Pulse Oximetry 100 04/23/24 21:00 Oxygen Delivery Method Room Air 04/23/24 21:00 Procedures Laceration Repair Laceration 1: Time of procedure: 01:00 Side (If applicable): right Size (cm): 1.5 Description: irregular (angulated chevron shaped) Depth: simple, single layer Local Anesthetic: lidocaine 1% Amount of anesthesia used (mL): 3 Pre-repair: wound explored Skin layer closed with: nylon Skin layer suture size: 4-0 Number of sutures: 3 Technique: simple, interrupted Course Orders Ordered: ED Orders 04/23/24 22:32 XR hand RT min 3V Stat Discontinued Medications Cephalexin HCl (Cephalexin 250 Mg Capsule) 500 mg PO NOW ONE Stop: 04/24/24 01:55 Last Admin: 04/24/24 02:28 Dose: 500 mg Documented By: Lidocaine HCl (Lidocaine 1% 20 Ml) 20 ml INJ INTRA-OP ONE Stop: 04/24/24 00:54 Tramadol HCl (Tramadol 50 Mg Tablet) 50 mg PO NOW ONE Stop: 04/24/24 02:01 Last Admin: 04/24/24 02:29 Dose: 50 mg Documented By: Tramadol HCl (Tramadol 50 Mg Prepack) 1 bottle MISC DIRECTED ONE Stop: 04/24/24 02:01 Last Admin: 04/24/24 02:30 Dose: 1 bottle Documented By: Vital Signs Vital signs: Vital Signs - 8 hr 04/23/24 21:00 04/24/24 02:35 Temperature 98.5 F 98.5 F Pulse Rate 75 54 L Respiratory Rate 16 16 Blood Pressure 118/57 L 113/65 Pulse Oximetry 100 98 Oxygen Delivery Method Room Air Room Air MDM - Wound/Laceration Imaging Data Extremity x-ray #1: Radiologist's Impression: [address] [address] XRay Report Signed Patient: Aj Christianson MR#: [id number] : 2000 Acct:[id number] Age/Sex: 23 / M Date of Service: 04/23/24 Loc: ED Accession Number: [id number] Procedure: XR hand RT min 3V Ordering Provider: Oneil Haynes MD PROCEDURE: XR HAND RT MIN 3V INDICATIONS: right finger lac, glass shards TECHNIQUE: 3 views of the hand(s) acquired. COMPARISON: None. FINDINGS: Bones: No fractures or dislocations. Carpal bones are normally aligned. No suspicious bony lesions. Soft tissues: No suspicious soft tissue calcifications. IMPRESSION: No acute bony abnormality. Approved by: Les Murrell M.D. on 04/23/2024 at 23:15 [facility] Narrative Medical decision making narrative: Finger laceration, broken glass at work, right pinky finger laceration, seemed to be able to flex at the level of the MCP but not at PIP or dip PIP, visible tendon structure, at least partial flexor tendon injury suspected. X-rays without foreign body, no fracture. Primary wound closure to the skin. P.o. Keflex dose. Tetanus was up-to-date. Consult orthopedics Case discussed with Orthopedic surgery Dr. Babin, who agreed with upper treatment plan, primary closure of the skin for now, can see hand surgeon in their clinic Thursday, call their clinic Thursday, to coordinate consultation with hand surgeon Dr. Burger. Patient splinted in 70? flexion MCP with brittny tape ulnar gutter to adjacent ring finger including affected pinky finger. Home pack tramadol. Prescription for cephalexin sent to his pharmacy. Improved, home with family [employer] industry claim form filled out, claim for number on discharge instructions. Off work until cleared by Orthopedic surgery, at least for use with affected dominant right hand. Discharge Plan Departure Patient Disposition: Home Clinical Impression: Laceration, Flexor tendon laceration, finger, open wound Instructions: DI for Laceration Repair Activity Restrictions/Additional Instructions: Right palmar/volar fifth finger laceration from broken glass injury at work. X-ray negative for foreign body or fracture. Tetanus up-to-date. On examination I could see some flexor tendon structures, which was not obviously transected, however when I had you attempt to flex your pinky finger you were able to flex at the metacarpal joint but not at the distal finger joints. Concern for partial/complete flexor tendon finger injury. This sometimes requires repair by a hand surgeon specialist. Wound was closed with primary skin sutures for now tonight. First dose antibiotic Keflex given, prescription for further antibiotics. Splinted with slight flexion position to decrease tension over the flexor tendons. Case discussed with Orthopedic surgery Dr. Babin on-call, who stated you can call their office on Thursday at the number provided in her clinic information, to then be seen by a hand surgeon in their group (Dr. Burger) for further evaluation. No work with right hand until seen by hand surgery for clearance. 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 Prescriptions: New cephalexin 500 mg capsule 500 mg PO QID 7 Days Qty: 28 0RF No Action bupropion HCl [Wellbutrin XL] 300 mg tablet extended release 24 hr 300 mg PO QAM carbamazepine [Tegretol XR] 400 mg tablet extended release 12 hr 400 mg PO BID estradiol 2 mg tablet 2 mg PO BID atomoxetine [Strattera] 25 mg capsule 25 mg PO ONCE mupirocin 2 % ointment 1 applic topical TID Qty: 22 0RF prazosin 2 mg capsule 2 mg PO BEDTIME hydroxyzine HCl 50 mg Tablet 50 mg PO DAILY PRN (Reason: Anxiety) spironolactone [Aldactone] 50 mg Tablet 50 mg PO BID Referrals: Miscellaneous,DoctorMD [Primary Care Provider] - Rosanne Babin MD [Physician] - Stand Alone Forms: Patient Portal/API, Work Release Note
[2024-04-24] MEDS: cephALEXin 250 MG CAPSULE 500 MG PO (02:28)
[2024-04-24] MEDS: TRAMADOL 50 MG TABLET PO (02:29)
[2024-04-24] MEDS: TRAMADOL 50 MG PREPACK 1 BOTTLE MISC (02:30)
[2024-04-24 02:35] VITALS: BP 113/65; PULSE 54; RESP 16; TEMP 36.9; O2SAT 98
== END 2024-04-24 02:36 | disposition home or self-care (01) ==
PROVIDERS: Emergency Provider Emergency Medicine
DX: S56.127A Laceration of flexor muscle, fascia and tendon of right little finger at forearm level, initial encounter (principal); W25.XXXA Contact with sharp glass, initial encounter
CPT/HCPCS: 12001; 29125; 29130; 73130; 99283

== ENCOUNTER 2024-06-30 15:58 | Emergency (ER) | payer SELFPAY ==
[2024-06-30 16:12] VITALS: BP 141/81; PULSE 110; RESP 20; TEMP 37.1; O2SAT 100; BMI 22.8
--- NOTE | 2024-06-30 16:53 | ED_ITS ---
HPI - Abdominal Pain <Belle Rodriges PA-C - Last Filed: 06/30/24 18:50> General Chief Complaint: Abdominal Pain Stated Complaint: abd px, vomiting brown flakes Time Seen by Provider: 06/30/24 16:52 Source: patient Mode of arrival: Ambulatory History of Present Illness HPI narrative: 23-year-old male by patient presents with concern for some upper abdominal pains and vomiting. Patient states that she has multiple food allergies including to celery and carrots and has had somewhat similar symptoms in the past with vomiting and some abdominal discomfort when they have been exposed to food allergens. This morning she woke up feeling a little unwell and had an episode of vomiting that was followed by abdominal discomfort. She proceeded to have 2 additional episodes of vomiting also followed by abdominal discomfort mostly in the epigastric region. She states she started to feel little bit better mid day and went to her physical therapy appointment and did fine there but was concerned she might be having an allergic reaction and came in to the emergency department for further evaluation. She did take 1 benadryl this afternoon. Patient states she has had no additional vomiting today since this morning. But has noted every time she tries to eat something she gets some abdominal discomfort up high in the middle. Patient thinks that they had 1 looser stool yesterday but otherwise have been having normal bowel movements. No bowel movement yet today. She does state that she has a history of reflux issues and used to take omeprazole but has not taken this for a few years. Acknowledges that current symptoms feel somewhat similar. Patient denies any new medications or changes to her medications. Denies fevers, chills, current nausea or other symptoms Related Data Home Medications Medication Instructions Recorded Confirmed bupropion HCl 300 mg 24 hr tablet, 300 mg PO QAM 09/30/22 03/03/24 extended release (Wellbutrin XL) carbamazepine 400 mg 400 mg PO BID 09/30/22 03/03/24 tablet,extended release,12 hr (Tegretol XR) estradiol 2 mg tablet 2 mg PO BID 09/30/22 03/03/24 prazosin 2 mg capsule 2 mg PO BEDTIME 10/05/22 03/03/24 hydroxyzine HCl 50 mg tablet 50 mg PO DAILY PRN Anxiety 12/27/22 03/03/24 spironolactone 50 mg tablet 50 mg PO BID 12/27/22 03/03/24 (Aldactone) atomoxetine 25 mg capsule 25 mg PO ONCE 03/03/24 03/03/24 (Strattera) Previous Rx's Medication Instructions Recorded mupirocin 2 % topical ointment 1 applic topical TID #22 grams 03/03/24 famotidine 20 mg tablet (Pepcid) 20 mg PO DAILY acid 06/30/24 reflux/postprandial 14 days #14 tabs Allergies Allergy/AdvReac Type Severity Reaction Status Date / Time Opioids - Morphine Analogues AdvReac Nausea Verified 04/23/24 21:00 Review of Systems <Belle Rodriges PA-C - Last Filed: 06/30/24 18:50> Review of Systems Narrative: See HPI Patient History <Belle Rodriges PA-C - Last Filed: 06/30/24 18:50> Social History Smoking Status: Current every day smoker Smoking Status: Current every day smoker tobacco type: cigarettes and vaping alcohol intake frequency: holidays/special occasions only Substance Use Type: marijuana Exam <Belle Rodriges PA-C - Last Filed: 06/30/24 18:50> Narrative Exam Narrative: GENERAL: [23] year old patient appears stated age. Well-developed patient, in mild distress. HEAD: Atraumatic. Normocephalic. EYES: Pupils equal round and reactive. Extraocular motions intact. No scleral icterus. No injection or drainage. ENT: Nose without bleeding, purulent drainage. Throat without erythema, tonsillar hypertrophy or exudate. Airway patent. NECK: Trachea midline. Non tender CARDIOVASCULAR: Regular rate and rhythm without murmurs, gallops, or rubs. RESPIRATORY: Clear to auscultation. Breath sounds equal bilaterally. No wheezes, rales, or rhonchi. GASTROINTESTINAL: Abdomen soft, slight epigastric tenderness, slight periumbilical discomfort, otherwise non-tender, nondistended; no Ching's sign, negative McBurney's point tenderness negative Rovsing. EXTREMITIES: No edema or joint tenderness. BACK: Nontender without deformity or crepitance. No flank tenderness. NEURO: AOx3. SKIN: No rash or erythema of visible areas Initial Vital Signs Initial Vital Signs: Vital Signs Temperature 98.7 F 06/30/24 16:12 Pulse Rate 110 H 06/30/24 16:12 Respiratory Rate 20 06/30/24 16:12 Blood Pressure 141/81 H 06/30/24 16:12 Pulse Oximetry 100 06/30/24 16:12 Oxygen Delivery Method Room Air 06/30/24 16:12 <Sondra Pradhan DO - Last Filed: 07/01/24 00:46> Initial Vital Signs Initial Vital Signs: Vital Signs Temperature 98.7 F 06/30/24 16:12 Pulse Rate 110 H 06/30/24 16:12 Respiratory Rate 20 06/30/24 16:12 Blood Pressure 141/81 H 06/30/24 16:12 Pulse Oximetry 100 06/30/24 16:12 Oxygen Delivery Method Room Air 06/30/24 16:12 Course <Belle Rodriges PA-C - Last Filed: 06/30/24 18:50> Orders Ordered: Discontinued Medications Al Hydrox/Mg Hydrox/Simethicone 20 ml/ Lidocaine HCl 15 ml 0 ml PO NOW ONE Stop: 06/30/24 17:34 Last Admin: 06/30/24 17:47 Dose: 20 ml Documented By: CTS Vital Signs Vital signs: Vital Signs - 8 hr 06/30/24 18:35 Pulse Rate 74 Respiratory Rate 14 Blood Pressure 101/58 L Pulse Oximetry 98 Oxygen Delivery Method Room Air <DO Court Murillo Last Filed: 07/01/24 00:46> Orders Ordered: Discontinued Medications Al Hydrox/Mg Hydrox/Simethicone 20 ml/ Lidocaine HCl 15 ml 0 ml PO NOW ONE Stop: 06/30/24 17:34 Last Admin: 06/30/24 17:47 Dose: 20 ml Documented By: CTS Vital Signs Vital signs: Vital Signs - 8 hr 06/30/24 18:35 Pulse Rate 74 Respiratory Rate 14 Blood Pressure 101/58 L Pulse Oximetry 98 Oxygen Delivery Method Room Air MDM - Abdominal Pain <Belle Rodriges PA-C - Last Filed: 06/30/24 18:50> Differential Diagnosis Differential diagnosis: Likely abdominal pain, gastroenteritis and other (GERD, acid reflux) Medical Records Attestation: I reviewed the patient's medical records. Treatment and Disposition Shared decision making:: Shared decision-making was used in determining plan of care today in the emergency department and deferral of labs and imaging today. MDM Narrative Medical decision making narrative: 23-year-old male with distant history of GERD/acid reflux and chronic intermittent abdominal pain associated with allergen exposures (carrots, celery) presents with concern for 3 episodes of vomiting this morning with some post emesis epigastric pain as well as epigastric pain after eating today. Patient was tachycardic at triage but this resolved completely by the time they are brought back to room. And did not recur. Patient has slight epigastric abdominal tenderness on exam and slight periumbilical tenderness. Symptoms feel similar to previous episodes of GERD and also similar to previous episodes of abdominal discomfort following allergen exposure. No known allergen exposure recently. Discussed with the patient pursuing a GI cocktail and not getting labs or imaging today based on their exam and history. They are in agreement with the plan. GI cocktail completely resolve the patient's symptoms. I am most suspicious that they are dealing with acid reflux/recurrence of GERD and recommended they work on all during their diet to a low acid diet and start taking Pepcid for the next 14 days follow up closely with her PCP, consider seeing gastroenterology whether or not this improves her symptoms. Based on exam and history low suspicion for cholecystitis, appendicitis or other intra- abdominal process that requires advanced imaging or labs today. ED return prec autions were provided. Follow-up plan discussed, all questions answered Discharge Plan Departure Patient Disposition: Home Clinical Impression: Generalized postprandial abdominal pain Acid reflux Qualifiers: Esophagitis presence: esophagitis presence not specified Qualified Code(s): K21.9 - Gastro-esophageal reflux disease without esophagitis Activity Restrictions/Additional Instructions: *You have been diagnosed with [acid reflux/postprandial abdominal discomfort] *What to do: *Please continue to take your regular medications as directed. [1 ] New medication prescriptions sent to your pharmacy: [Pepcid] [ ] New medication written as a paper prescription [ ] No new medications given *Please follow up with your primary care provider in 2-3 days, call for an appointment. Let them know you were seen in the Emergency Department and that we ask that you be seen in follow up. We will electronically transmit a record of today's note if your PCP is in our system. Based on your exam and history we did not do labs and imaging today, but we did do a GI cocktail for you which drastically improved your symptoms and you were feeling much better. I do think it is likely that you have been dealing with a recurrence of your acid reflux symptoms that you had a few years ago, and that the vomiting today probably exacerbated your symptoms some. You have been having some discomfort in your abdomen after eating, and this also could be related. As we discussed I would encourage you to eat a diet that is low in acidic foods with simple neutral foods for the next 7-10 days or more and while it is possible that you may benefit from a PPI such as omeprazole which he took previously at this point your symptoms seem fairly mild and it is reasonable to try taking Pepcid on a daily basis for the next 14 days to see if this helps your symptoms. Pepcid can also be helpful for allergic-type symptoms and you do have multiple food allergies which have had somewhat similar symptoms for you in the past. If you do develop fevers chills persistent or new/worsening abdominal pain, persistent vomiting or diarrhea please make sure you seek re-evaluation as we did not do advanced imaging or labs today and your symptoms could represent early signs of another illness which we did not fully evaluate for today. That said I expect you will do well and glad you are feeling better. I would encourage you to follow up with your primary care provider and certainly if your symptoms are improving with the medicine prescribed today or not improving you should discuss this with them and you can consider seeing a lithographic general worker if you have not seen 1 recently for these symptoms. *If you do not have a primary care provider please contact the [facility] Resource line at [phone]. They will ask some questions about your medical history and help get you set up with a doctor in the community. *Return to Emergency Department if you should have any new, worsening or concerning symptoms, such as [fever greater than 101 F, shaking chills, worsening pain, persistent vomiting or other bothersome symptoms] Prescriptions: New famotidine [Pepcid] 20 mg tablet 20 mg PO DAILY 14 Days Qty: 14 0RF No Action bupropion HCl [Wellbutrin XL] 300 mg tablet extended release 24 hr 300 mg PO QAM carbamazepine [Tegretol XR] 400 mg tablet extended release 12 hr 400 mg PO BID estradiol 2 mg tablet 2 mg PO BID atomoxetine [Strattera] 25 mg capsule 25 mg PO ONCE mupirocin 2 % ointment 1 applic topical TID Qty: 22 0RF prazosin 2 mg capsule 2 mg PO BEDTIME hydroxyzine HCl 50 mg Tablet 50 mg PO DAILY PRN (Reason: Anxiety) spironolactone [Aldactone] 50 mg Tablet 50 mg PO BID Referrals: Miscellaneous,Doctor, MD [Primary Care Provider] - Stand Alone Forms: Patient Portal/API ED Sign-out <Sondra Pradhan DO - Last Filed: 07/01/24 00:46> Cosign ED Attending Cosignature Attestation: I was available for consultation.
[2024-06-30] MEDS: MAG HYDROX/ALUMINUM/SIMETH SUS 20 ML, LIDOCAINE VISCOUS 2% 15 ML PO (17:47)
[2024-06-30 18:35] VITALS: BP 101/58; PULSE 74; RESP 14; O2SAT 98
== END 2024-06-30 18:44 | disposition home or self-care (01) ==
PROVIDERS: Emergency Provider Student in an Organized Health Care Education/Training Program
DX: K21.9 Gastro-esophageal reflux disease without esophagitis (principal); R10.84 Generalized abdominal pain
CPT/HCPCS: 99283

== ENCOUNTER 2025-02-10 11:34 | Emergency (ER) | payer OTHER, SELFPAY ==
[2025-02-10 11:37] VITALS: BP 133/60; PULSE 71; RESP 20; TEMP 36.5; O2SAT 99; BMI 21.2
--- NOTE | 2025-02-10 12:01 | ED_ITS ---
HPI - Extremity Injury (Lower) <Sharee Caceres PA-C - Last Filed: 02/10/25 15:26> General Chief Complaint: Extremity Injury, Lower Stated Complaint: WIC: swelling LT ankle and foot. Poss blood clot Time Seen by Provider: 02/10/25 12:01 Source: patient Mode of arrival: Ambulatory History of Present Illness HPI Narrative: Aj Colon is a very pleasant 24-year-old male, she/her/hers pronouns, with a past medical history of anxiety, depression, seasonal allergies, acid reflux, on estrogen therapy who presents to the emergency department for left lower extremity swelling x 2-3 weeks, worsened yesterday after flying the day before. Patient is here with their fiance. States that about 2 or 3 weeks ago she mildly rolled the left ankle and had some minor pain and swelling however this went away, occasionally would swell and then returned to normal. She recently traveled and flew home 2 days ago, last night swelling of the left foot and ankle became dramatically worse. At this time the swelling has gone down but she continues to have some minor swelling on the lateral aspect of the left foot and ankle. Denies pain but reports mild discomfort on the outside of the ankle and foot. She initially went to the walk-in clinic but was sent to the emergency department for concern of possible DVT and need for venous ultrasound. Patient denies any flu-like symptoms, fevers, chills, redness or other concerns. Related Data Home Medications Medication Instructions Recorded Confirmed bupropion HCl 300 mg 24 hr tablet, 300 mg PO QAM 09/30/22 01/13/25 extended release (Wellbutrin XL) carbamazepine 400 mg 400 mg PO BID 09/30/22 01/13/25 tablet,extended release,12 hr (Tegretol XR) estradiol 2 mg tablet 2 mg PO BID 09/30/22 01/13/25 prazosin 2 mg capsule 2 mg PO BEDTIME 10/05/22 01/13/25 hydroxyzine HCl 50 mg tablet 50 mg PO DAILY PRN Anxiety 12/27/22 01/13/25 spironolactone 50 mg tablet 50 mg PO BID 12/27/22 01/13/25 (Aldactone) atomoxetine 25 mg capsule 25 mg PO ONCE 03/03/24 01/13/25 (Strattera) Previous Rx's Medication Instructions Recorded mupirocin 2 % topical ointment 1 applic topical TID #22 grams 03/03/24 naproxen 500 mg tablet 500 mg PO BID PRN pain #14 tabs 02/10/25 Allergies Allergy/AdvReac Type Severity Reaction Status Date / Time Opioids - Morphine Analogues AdvReac Nausea Verified 01/13/25 09:13 Review of Systems <Sharee Caceres PA-C - Last Filed: 02/10/25 15:26> Review of Systems ROS Unobtainable: All systems reviewed & are unremarkable except as noted in HPI and below Patient History <Sharee Caceres PA-C - Last Filed: 02/10/25 15:26> Social History Smoking Status: Current every day smoker Smoking Status: Current every day smoker tobacco type: cigarettes and vaping alcohol intake frequency: holidays/special occasions only Exam <Sharee Caceres PA-C - Last Filed: 02/10/25 15:26> Narrative Exam Narrative: GENERAL: 24 year old patient appears stated age. Well-developed patient, in no acute distress. HEAD: Atraumatic. Normocephalic. CARDIOVASCULAR: Regular rate RESPIRATORY: ?Nonlabored respirations. ?Speaking in clear, full sentences. EXTREMITIES: Mild nonpitting edema on the lateral left ankle and foot. Mild TTP left lateral malleolus. No focal tenderness to palpation of the left foot or the medial malleolus. Strong DP and PT pulses bilaterally, brisk capillary refill, no erythema or streaking. No tenderness to palpation or swelling of bilateral calves. NEURO: AOx3. ?Clear speech. ?Moves all 4 extremities appropriately. SKIN: No rash or erythema of visible areas Initial Vital Signs Initial Vital Signs: Vital Signs Temperature 97.7 F 02/10/25 11:37 Pulse Rate 71 02/10/25 11:37 Respiratory Rate 20 02/10/25 11:37 Blood Pressure 133/60 02/10/25 11:37 Pulse Oximetry 99 02/10/25 11:37 Oxygen Delivery Method Room Air 02/10/25 11:37 <Gautam Salazar MD - Last Filed: 02/11/25 07:05> Initial Vital Signs Initial Vital Signs: Vital Signs Temperature 97.7 F 02/10/25 11:37 Pulse Rate 71 02/10/25 11:37 Respiratory Rate 20 02/10/25 11:37 Blood Pressure 133/60 02/10/25 11:37 Pulse Oximetry 99 02/10/25 11:37 Oxygen Delivery Method Room Air 02/10/25 11:37 Course <Sharee Caceres PA-C - Last Filed: 02/10/25 15:26> Orders Ordered: ED Orders 02/10/25 12:27 US periph venous low extrem lt Stat 02/10/25 12:28 XR ankle LT min 3V Stat Vital Signs Vital signs: Vital Signs - 8 hr 02/10/25 11:37 Temperature 97.7 F Pulse Rate 71 Respiratory Rate 20 Blood Pressure 133/60 Pulse Oximetry 99 Oxygen Delivery Method Room Air <Gautam Salazar MD - Last Filed: 02/11/25 07:05> Orders Ordered: ED Orders 02/10/25 12:27 US periph venous low extrem lt Stat 02/10/25 12:28 XR ankle LT min 3V Stat Vital Signs Vital signs: Vital Signs - 8 hr 02/10/25 11:37 Temperature 97.7 F Pulse Rate 71 Respiratory Rate 20 Blood Pressure 133/60 Pulse Oximetry 99 Oxygen Delivery Method Room Air MDM - Extremity Injury (Lower) <Sharee Caceres PA-C - Last Filed: 02/10/25 15:26> Medical Records Attestation: I reviewed the patient's medical records. Medical records narrative: Recent ED visit 06/30/2024 for acid reflux Imaging Data Left Ankle X-Ray: Radiologist's Impression: PROCEDURE: XR ANKLE LT MIN 3V INDICATIONS: lateral ankle pain x 2-3 weeks TECHNIQUE: 3 views of the ankle were acquired. COMPARISON: None. FINDINGS AND IMPRESSION: No displaced fracture. No dislocation. No suspicious soft tissue calcifications. If there is high concern for further derangement, consider MRI evaluation. LLE Venous US: Radiologist's Impression: PROCEDURE: US PERIPH VENOUS LOW EXTREM LT INDICATIONS: SWELLING; RECENT FLIGHT; ON HORMONES TECHNIQUE: Real-time imaging, as well as color and pulse Doppler interrogation, were performed of the lower extremity deep veins from the inguinal ligament to the popliteal fossa, with documentation of the visualized calf veins. COMPARISON: [facility], CR, XR ANKLE LT MIN 3V, 02/10/2025, 12:29. FINDINGS: The common femoral, femoral, popliteal, and the visualized calf veins are normally compressible, and free of intraluminal thrombus. Color and pulse Doppler demonstrate normal phasic intraluminal flow. There is normal augmentation response to distal compression maneuver. IMPRESSION: No findings of lower extremity deep venous thrombosis. MDM Narrative Medical decision making narrative: 24-year-old male, she/her/hers pronouns, with a past medical history of anxiety, depression, seasonal allergies, acid reflux, on estrogen therapy who presents to the emergency department for left lower extremity swelling x 2-3 weeks, worsened yesterday after flying the day before. Differential diagnosis includes but not limited to lateral ankle sprain, ankle fracture, DVT, cellulitis, arthritis, gout, etc. On exam the patient is in no acute distress, nontoxic-appearing, all vital signs within normal limits. There is mild nonpitting edema of the lateral left foot and ankle. There is a remote history of possible inversion ankle sprain, however also recent flight, on estrogen, sent by [facility] for DVT rule out. We will obtain x-ray of ankle and vascular ultrasound. No signs of infection at this time. Patient declines need for pain medication. Left lower extremity vascular ultrasound reveals no findings of lower extremity deep venous thrombosis. Left ankle x-ray reveals no displaced fracture. No dislocation. No suspicious soft tissue calcifications. Suspect lateral ankle sprain. We will treat with crutches and Galindo wrap, rice therapy, naproxen and Tylenol, advised follow up with PCP, discussed strict ED return precautions. Patient verbalized understanding of all information is agreeable to the plan, all questions answered. She is stable for discharge home. Discharge Plan Departure Patient Disposition: Home Clinical Impression: Inversion sprain of left ankle Qualifiers: Encounter type: initial encounter Qualified Code(s): S93.402A - Sprain of unspecified ligament of left ankle, initial encounter Instructions: DI for Ankle Pain Activity Restrictions/Additional Instructions: Dear Isaiah, Thank you for coming to the emergency department. Today you were evaluated for left foot/ankle swelling and pain. Your ultrasound revealed no blood clot. Your x-ray revealed no fracture or dislocation. I suspect that you have sprained some of the ligaments on the lateral aspect of your left ankle when you rolled it a few weeks ago. Please use the crutches and Galindo wrap to help with pain, you may begin walking on the ankle when your pain has improved. Avoid running or jumping or any other movements that exacerbate the pain. Please take the prescribed naproxen if needed for pain in addition to [id number] acetaminophen/Tylenol. Please use RICE therapy for your pain in addition to naproxen/acetaminophen. Rest the painful area. Ice the area of pain/swelling for at least 15 minutes, 4x a day. Compress the area of swelling using a brace, wrap, or splint if applied. Elevate the painful or swollen extremity by supporting it above the level of the heart with pillows when sitting or laying. Please follow up with your primary care doctor within the next 2-3 days for ER follow-up. (If you do not have a PCP you can call [phone]. ?to schedule an appointment with an [facility] Primary Care Provider) IF YOU DEVELOP ANY NEW OR WORSENING SYMPTOMS, RETURN TO THE ER! Please read the attached instructions, they highlight more specific treatments and interventions for you at home. Thank you for letting me participate in your care, Sharee Caceres PA-C Prescriptions: New naproxen 500 mg tablet 500 mg PO BID PRN (Reason: pain) Qty: 14 0RF Rx Instructions: take with food. No Action bupropion HCl [Wellbutrin XL] 300 mg tablet extended release 24 hr 300 mg PO QAM carbamazepine [Tegretol XR] 400 mg tablet extended release 12 hr 400 mg PO BID estradiol 2 mg tablet 2 mg PO BID atomoxetine [Strattera] 25 mg capsule 25 mg PO ONCE mupirocin 2 % ointment 1 applic topical TID Qty: 22 0RF prazosin 2 mg capsule 2 mg PO BEDTIME hydroxyzine HCl 50 mg Tablet 50 mg PO DAILY PRN (Reason: Anxiety) spironolactone [Aldactone] 50 mg Tablet 50 mg PO BID Referrals: Miscellaneous,Doctor, [Primary Care Provider] - Stand Alone Forms: Patient Portal/API/Survey, Work Release Note ED Sign-out <Gautam Salazar MD - Last Filed: 02/11/25 07:05> Cosign ED Attending John Attestation: I was immediately available in the department for consultation. ?This documentation has been reviewed and I agree with assessment and plan. Supervised by Gautam Salazar MD
--- NOTE | 2025-02-10 12:27 | DI.US.S_ITS ---
PROCEDURE: US PERIPH VENOUS LOW EXTREM LT INDICATIONS: SWELLING; RECENT FLIGHT; ON HORMONES TECHNIQUE: Real-time imaging, as well as color and pulse Doppler interrogation, were performed of the lower extremity deep veins from the inguinal ligament to the popliteal fossa, with documentation of the visualized calf veins. COMPARISON: [facility], CR, XR ANKLE LT MIN 3V, 02/10/2025, 12:29. FINDINGS: The common femoral, femoral, popliteal, and the visualized calf veins are normally compressible, and free of intraluminal thrombus. Color and pulse Doppler demonstrate normal phasic intraluminal flow. There is normal augmentation response to distal compression maneuver. IMPRESSION: No findings of lower extremity deep venous thrombosis. Dictated by: Paolo Ford M.D. on 02/10/2025 at 12:05 Approved by: Paolo Ford M.D. on 02/10/2025 at 12:05
--- NOTE | 2025-02-10 12:28 | DI.RAD.S_ITS ---
PROCEDURE: XR ANKLE LT MIN 3V INDICATIONS: lateral ankle pain x 2-3 weeks TECHNIQUE: 3 views of the ankle were acquired. COMPARISON: None. FINDINGS AND IMPRESSION: No displaced fracture. No dislocation. No suspicious soft tissue calcifications. If there is high concern for further derangement, consider MRI evaluation. Dictated by: Johann Elkins M.D. on 02/10/2025 at 13:00 Approved by: Johann Elkins M.D. on 02/10/2025 at 13:01
--- NOTE | 2025-02-10 12:38 | PC.NURSE ---
Mild left ankle swelling. Pt reports they flew the other day ago but reports the swelling started the day before. Profusion in tact
== END 2025-02-10 14:15 | disposition home or self-care (01) ==
PROVIDERS: Emergency Provider Physician Assistant
DX: S93.402A Sprain of unspecified ligament of left ankle, initial encounter (principal); X50.1XXA Overexertion from prolonged static or awkward postures, initial encounter
CPT/HCPCS: 73610; 93971; 99282; 99283